=== PATIENT | male | born 1945 | race Caucasian/White ===

== ENCOUNTER 2020-12-23 11:37 | Emergency (ER) | payer OTHER, MEDICARE ==
[~2020-12-23] VITALS: Ht 185.4 cm; Wt 79.4 kg
[2020-12-23] MEDS ORDERED: ALBU2.5V5 INH (12:04)
[2020-12-23] MEDS ORDERED: BUPR100 PO (12:05)
[2020-12-23] MEDS ORDERED: ATORVASTATIN CA80 M1 PO (12:05)
[2020-12-23] MEDS ORDERED: ASCO500 PO (12:05)
[2020-12-23] MEDS ORDERED: ASPI81CH PO (12:05)
[2020-12-23] MEDS ORDERED: THERA-D2000 UNIT PO (12:06)
[2020-12-23] MEDS ORDERED: BUSP10 PO (12:06)
[2020-12-23] MEDS ORDERED: Vitamin B-121000 MCG PO (12:06)
[2020-12-23] MEDS ORDERED: DICLOFENAC SOD100 GM TP (12:07)
[2020-12-23 12:08] LABS: BASOPHILS ABSOLUTE AUTO 0.03 K/mm3 (0.00-0.23); BASOPHILS PERCENT AUTO 0 % (0-2); EOSINOPHILS ABSOLUTE AUTO 0.07 K/mm3 (0.00-0.68); EOSINOPHILS PERCENT AUTO 1 % (0-6); Hematocrit 31.1 % (37.0-53.0); Hemoglobin 10.4 g/dL (13.5-17.5); IMMATURE GRAN ABSOLUTE AUTO 0.12 K/mm3 (0.00-0.10); IMMATURE GRAN PERCENT AUTO 1 % (0-1); LYMPHOCYTES ABSOLUTE AUTO 0.67 K/mm3 (0.84-5.20); LYMPHOCYTES PERCENT AUTO 6 % (21-46); MONOCYTES ABSOLUTE AUTO 0.53 K/mm3 (0.16-1.47); MONOCYTES PERCENT AUTO 5 % (4-13); Mean Corpuscular HGB 34.1 pg (26.0-34.0); Mean Corpuscular HGB Conc 33.4 g/dL (31.5-36.5); Mean Corpuscular Volume 102 fL (80-100); Mean Platelet Volume 10.2 fL (9.1-12.4); NEUTROPHILS ABSOLUTE AUTO 9.96 K/mm3 (1.96-9.15); NEUTROPHILS PERCENT AUTO 87 % (41-73); Platelet Count 267 K/mm3 (150-400); RDW Coefficient Variation 13.9 % (11.7-14.2); RDW Standard Deviation 51.2 fL (35.1-46.3); Red Blood Cell Count 3.05 M/mm3 (4.30-5.90); White Blood Cell Count 11.38 K/mm3 (4.00-11.30)
[2020-12-23] MEDS ORDERED: MELO7.5 PO (12:10)
[2020-12-23] MEDS ORDERED: GABA300 PO (12:10)
[2020-12-23] MEDS ORDERED: GUAI200 PO (12:10)
[2020-12-23] MEDS ORDERED: MIRT15ST PO (12:10)
[2020-12-23] MEDS ORDERED: HYDCHL12.5 PO (12:10)
[2020-12-23] MEDS ORDERED: SERT50 PO (12:11)
[2020-12-23] MEDS ORDERED: MINIPRESS2 M1 PO (12:11)
[2020-12-23] MEDS ORDERED: NICO2 PO (12:11)
[2020-12-23] MEDS ORDERED: SUMA25 PO (12:12)
[2020-12-23] MEDS ORDERED: SILDENAFIL CIT100 MG PO (12:12)
[2020-12-23 12:21] LABS: Alanine Aminotransfer (ALT/SGP 18 U/L (12-78); Albumin, Blood 3.2 g/dL (3.4-5.0); Albumin/Globulin Ratio 0.8 (0.8-1.8); Alk Phos 96 U/L (50-136); Anion Gap 5 mmol/L (6-16); Aspartate Aminotrans (AST/SGOT 16 U/L (12-37); Bilirubin, Total 0.3 mg/dL (0.1-1.0); Blood Urea Nitrogen 22 mg/dL (8-24); Bun/Creatinine Ratio 13.7 (12.0-20.0); CO2, Blood 30 mmol/L (21-32); Calcium, Blood 9.1 mg/dL (8.5-10.1); Chloride, Blood 106 mmol/L (98-108); Creatinine, Blood 1.61 mg/dL (0.60-1.20); Glomerular Filtration Rate 42 (60-); Glucose, Blood 111 mg/dL (70-99); Potassium, Blood 4.1 mmol/L (3.5-5.5); Sodium, Blood 141 mmol/L (136-145); Total Protein, Blood 7.2 g/dL (6.4-8.2); Troponin I <0.015 ng/mL (0.000-0.040)
[2020-12-23] MEDS ORDERED: Prednisone20 MG PO (14:35)
== END 2020-12-23 14:59 | disposition home or self-care (01) ==
LOC: ER 11:37
PROVIDERS: Emergency Medicine
DX: J44.9 Chronic obstructive pulmonary disease, unspecified (principal); F17.210 Nicotine dependence, cigarettes, uncomplicated; Z79.82 Long term (current) use of aspirin; Z79.899 Other long term (current) drug therapy
CPT/HCPCS: 71045; 80053; 84484; 85025; 93005; 93010; 94640; 96374; 99285-25; J2930